=== PATIENT | male | born 2000 | race Caucasian/White ===

== ENCOUNTER → 2021-03-25 | Outpatient (CLI) | payer OTHER ==
--- NOTE | 2021-03-25 11:57 | RAD ---
Single view of the left foot and 2 views of the left second toe without comparison for history of toe fracture. FINDINGS: There is a nondisplaced comminuted fracture of the diaphysis of the second proximal phalanx , with no intra-articular extension. There is also irregularity the base of the second metatarsal, wh ich is not seen to flow drainage. This could be normal, but could indicate a nondisplaced fracture di slocation as well. IMPRESSION: 1. Nondisplaced comminuted fracture of the second proximal phalanx. 2. Subtle irregularity of the base of the second metatarsal not seen to best advantage. Nondisplaced fracture at this location cannot be definitively excluded. If there is point tenderness in this locat ion, dedicated foot radiographs are recommended. Electronically signed by: Brice Ceballos MD (03/25/2021 11:55 AM) [id number]
== END ==
LOC: RAD 09:27
PROVIDERS: ATTEND Physician Assistant
DX: S92.515A Nondisplaced fracture of proximal phalanx of left lesser toe(s), initial encounter for closed fracture (principal); S92.912A Unspecified fracture of left toe(s), initial encounter for closed fracture; X58.XXXA Exposure to other specified factors, initial encounter; Y93.89 Activity, other specified; Y92.89 Other specified places as the place of occurrence of the external cause; Y99.8 Other external cause status
CPT/HCPCS: 73660